=== PATIENT | female | born 1960 | race Two or more races ===

== ENCOUNTER 2017-10-23 12:15 | Outpatient (CLI) | payer OTHER ==
[~2017-10-23 12:15] MED LIST: ACUPRIL; CLONAZEPAM2 MG PO; LAMICTAL100 M1; QUINAPRIL HCL20 MG; ZOLOFT50 MG
== END 2017-10-23 12:27 | disposition home or self-care (01) ==
LOC: RAD 12:15
DX: M17.0 Bilateral primary osteoarthritis of knee (principal)

== ENCOUNTER → 2018-10-08 | Outpatient (CLI) | payer OTHER | END | disposition home or self-care (01) | LOC: SONOGRAMA 11:23 → MAMO-SONO 11:45 | DX: M65.811 Other synovitis and tenosynovitis, right shoulder (principal) ==

== ENCOUNTER → 2019-02-24 | Outpatient (CLI) | payer OTHER | END | disposition home or self-care (01) | LOC: RAD 15:37 | DX: I10 Essential (primary) hypertension (principal) ==